=== PATIENT | female | born 1995 | race Two or more races ===

== ENCOUNTER 2023-10-18 18:40 | Emergency (ER) | payer MEDICAID ==
[~2023-10-18] VITALS: Ht 162.6 cm; Wt 67.3 kg
[2023-10-18 18:44] VITALS: TEMP 98.5
[2023-10-18 19:18] LABS: APPEARANCE,URINE HAZY (CLEAR); BILIRUBIN,URINE NEGATIVE (NEGATIVE); COLOR,URINE COLORLESS (YELLOW); GLUCOSE, URINE (UA) NEGATIVE (NEGATIVE); KETONES,URINE NEGATIVE (NEGATIVE); LEUKOCYTE ESTERASE ,URINE LARGE (NEGATIVE); NITRATE,URINE NEGATIVE (NEGATIVE); OCCULT BLOOD,URINE LARGE (NEGATIVE); PROTEIN,URINE TRACE mg/dL (NEGATIVE); SPECIFIC GRAVITIY, URINE 1.004 (1.003-1.030); UROBILINOGEN,URINE <=1.0 mg/dL (<=1.0)
[2023-10-18 19:27] LABS: BACTERIA,URINE Few /HPF (None Seen); SQUAMOUS EPITHELIAL CELL,UR Few /LPF (None Seen); WBC,URINE 26-50 /HPF (0-5)
[2023-10-18] MEDS ORDERED: CefTRIAXone SODIUM 1 GM/VIAL IM ONE (21:15)
[2023-10-18] MEDS ORDERED: IBUPROFEN 600 MG TABLET PO ONE (21:15)
[2023-10-18] MEDS ORDERED: LIDOCAINE/PF 1% 2 ML VIAL IM ONE (21:15)
[2023-10-18 21:20] VITALS: BP 121/81; PULSE 83; RESP 16
[2023-10-18] MEDS ORDERED: SULF-261 PO (21:46)
== END 2023-10-18 21:59 | disposition home or self-care (01) ==
LOC: EMS 18:42
DX: N39.0 Urinary tract infection, site not specified (principal); Z91.040 Latex allergy status
CPT/HCPCS: 99283; 81001; 87086; 87186; 96372; J0696; J3490